=== PATIENT | male | born 1930 | race Caucasian/White ===

== ENCOUNTER 2016-06-28 12:30 | Outpatient (RCR) | payer MEDICARE ==
[~2016-06-28 12:30] MED LIST: ASPIRIN E.C. 8181 MG; MULTIPLE VITAMI1 CAP PO; ZYLOPRIM 300MG300 MG PO
== END 2016-06-29 09:44 | disposition home or self-care (01) ==
LOC: MKS.ESL.PT 12:30
DX: M62.81 Muscle weakness (generalized) (principal)
CPT/HCPCS: G8978-GP; G8979-GP; G8980-GP

== ENCOUNTER 2016-10-18 13:50 | Outpatient (RCR) | payer MEDICARE | END 2016-12-23 08:48 | disposition home or self-care (01) | LOC: MKS.ESL.PT 13:50 | DX: M62.81 Muscle weakness (generalized) (principal); R53.83 Other fatigue | CPT/HCPCS: G8978-GP; G8979-GP; G8980-GP ==

== ENCOUNTER → 2017-07-12 | Outpatient (CLI) | payer MEDICARE | LOC: COL.RAD 10:30 | DX: S22.080A Wedge compression fracture of T11-T12 vertebra, initial encounter for closed fracture (principal); M51.27 Other intervertebral disc displacement, lumbosacral region; G31.89 Other specified degenerative diseases of nervous system; W19.XXXA Unspecified fall, initial encounter ==

== ENCOUNTER 2017-07-14 09:50 | Outpatient (CLI) | payer MEDICARE ==
[~2017-07-14 09:50] MED LIST changes: -ASPIRIN E.C. 8181 MG; +ASPIRIN E.C. 8181 MG PO
[2017-07-14 10:38] VITALS: BP 136/80; PULSE 71; TEMP 98.1
[2017-07-14] MEDS ORDERED: PRINZIDE 12.5 M1 TA1 PO (10:42)
[2017-07-14] MEDS ORDERED: PLAVIX 75MG TAB75 MG PO (10:42)
[2017-07-14] MEDS ORDERED: FOLIC ACID 11 MG/TA1 PO (10:43)
[2017-07-14] MEDS ORDERED: ULTRAM 50MG TAB50 MG PO (10:44)
[2017-07-14] MEDS ORDERED: LIPITOR 10MG10 MG PO (10:45)
[2017-07-14] MEDS ORDERED: SENOKOT S 50 MG1 TAB PO (10:46)
== END 2017-07-14 11:00 | disposition home or self-care (01) ==
LOC: COL.CAR 09:50
DX: S22.088A Other fracture of T11-T12 vertebra, initial encounter for closed fracture (principal); S22.000G Wedge compression fracture of unspecified thoracic vertebra, subsequent encounter for fracture with delayed healing; Z53.9 Procedure and treatment not carried out, unspecified reason

== ENCOUNTER 2017-07-20 09:23 | Outpatient (CLI) | payer MEDICARE ==
[~2017-07-20] VITALS: Ht 175.4 cm; Wt 79.3 kg
[2017-07-20] VITALS (9 sets, daily range): BP systolic 124–188; BP diastolic 69–99; PULSE 60–78; TEMP 97.7
[~2017-07-20 09:23] MED LIST changes: +FOLIC ACID 11 MG/TA1 PO; +LIPITOR 10MG10 MG PO; +PLAVIX 75MG TAB75 MG PO; +PRINZIDE 12.5 M1 TA1 PO; +SENOKOT S 50 MG1 TAB PO; +ULTRAM 50MG TAB50 MG PO
[2017-07-20] MEDS ORDERED: FLOMAX 0.40.4 MG/CAP PO (10:03)
== END 2017-07-20 15:15 | disposition home or self-care (01) ==
LOC: COL.CAR 09:23
DX: M48.54XA Collapsed vertebra, not elsewhere classified, thoracic region, initial encounter for fracture (principal); E78.5 Hyperlipidemia, unspecified; I10 Essential (primary) hypertension; E79.0 Hyperuricemia without signs of inflammatory arthritis and tophaceous disease; Z86.73 Personal history of transient ischemic attack (TIA), and cerebral infarction without residual deficits; G89.29 Other chronic pain; E78.00 Pure hypercholesterolemia, unspecified
CPT/HCPCS: J0360; J2250; J3010; J7120

== ENCOUNTER 2017-10-24 11:00 | Outpatient (RCR) | payer MEDICARE ==
[~2017-10-24 11:00] MED LIST changes: +FLOMAX 0.40.4 MG/CAP PO
== END 2017-11-06 | disposition home or self-care (01) ==
LOC: MKS.ESL.PT
DX: M54.5 Low back pain (principal)
CPT/HCPCS: G8978-GP; G8979-GP

== ENCOUNTER → 2018-06-08 | Outpatient (CLI) | payer MEDICARE ==
[~2018-06-08] MED LIST changes: +B COMPLEX #11 TA1 PO; +D3-5050000 IU; +MIRALAX PA17 GM/Dose PO; +NORVASC 5MG5 MG/TAB PO; +SEROQUEL 2525 MG/TAB PO
[2018-06-08 15:43] LABS: CALCIUM 8.3 mg/dL (8.4-10.2); CREATININE, serum 0.83 mg/dL (0.66-1.25); POTASSIUM 4.4 mmol/L (3.4-5.0)
== END ==
LOC: ZCOL.LAB 15:24
PROVIDERS: Nurse Practitioner Family
DX: I10 Essential (primary) hypertension (principal)

== ENCOUNTER → 2018-06-13 | Outpatient (CLI) | payer MEDICARE ==
[2018-06-13 13:25] LABS: CALCIUM 8.9 mg/dL (8.4-10.2); CREATININE, serum 0.79 mg/dL (0.66-1.25); POTASSIUM 4.3 mmol/L (3.4-5.0)
== END ==
LOC: ZCOL.LAB 11:58
PROVIDERS: Internal Medicine
DX: I10 Essential (primary) hypertension (principal)

== ENCOUNTER → 2018-06-19 | Outpatient (CLI) | payer MEDICARE ==
[2018-06-19 17:40] LABS: CALCIUM 8.4 mg/dL (8.4-10.2); CREATININE, serum 0.84 mg/dL (0.66-1.25); POTASSIUM 4.3 mmol/L (3.4-5.0)
== END ==
LOC: ZCOL.LAB 17:20
PROVIDERS: Nurse Practitioner Family
DX: I10 Essential (primary) hypertension (principal)

== ENCOUNTER → 2018-06-26 | Outpatient (CLI) | payer MEDICARE | LOC: ZCOL.LAB 11:49 | DX: R41.82 Altered mental status, unspecified (principal) ==

== ENCOUNTER → 2018-07-03 | Outpatient (CLI) | payer MEDICARE ==
[2018-07-03 15:15] LABS: CALCIUM 8.7 mg/dL (8.4-10.2); CREATININE, serum 1.04 mg/dL (0.66-1.25); POTASSIUM 4.4 mmol/L (3.4-5.0)
== END ==
LOC: ZCOL.LAB 14:28
PROVIDERS: Internal Medicine
DX: I10 Essential (primary) hypertension (principal)

== ENCOUNTER → 2018-07-17 | Outpatient (CLI) | payer MEDICARE ==
[2018-07-17 12:47] LABS: CALCIUM 8.9 mg/dL (8.4-10.2); CREATININE, serum 0.82 mg/dL (0.66-1.25); POTASSIUM 4.2 mmol/L (3.4-5.0)
== END ==
LOC: ZCOL.LAB 12:35
PROVIDERS: Internal Medicine
DX: I10 Essential (primary) hypertension (principal)

== ENCOUNTER → 2018-07-21 | Outpatient (CLI) | payer MEDICARE ==
[2018-07-21 11:59] LABS: CALCIUM 8.5 mg/dL (8.4-10.2); CREATININE, serum 0.93 (0.66-1.25); POTASSIUM 4.1 mmol/L (3.4-5.0)
== END ==
LOC: ZCOL.LAB 10:34
PROVIDERS: Internal Medicine
DX: I10 Essential (primary) hypertension (principal)

== ENCOUNTER → 2018-07-27 | Outpatient (REF) ==
[2018-07-27 12:26] LABS: CALCIUM 8.7 mg/dL (8.4-10.2); CREATININE, serum 0.99 (0.66-1.25); POTASSIUM 3.7 mmol/L (3.4-5.0)
== END ==
LOC: ZCOL.LAB 12:14
PROVIDERS: Internal Medicine
DX: E87.5 Hyperkalemia (principal)

== ENCOUNTER → 2018-09-13 | Outpatient (CLI) | payer MEDICARE ==
[2018-09-13 12:08] LABS: CALCIUM 8.7 mg/dL (8.4-10.2); CREATININE, serum 0.88 (0.66-1.25); POTASSIUM 3.7 mmol/L (3.4-5.0)
== END ==
LOC: ZCOL.LAB 11:06
PROVIDERS: Internal Medicine
DX: R41.0 Disorientation, unspecified (principal)

== ENCOUNTER → 2018-10-20 | Outpatient (CLI) | payer MEDICARE | LOC: COL.RAD 09:12 | DX: T18.120A Food in esophagus causing compression of trachea, initial encounter (principal); R13.10 Dysphagia, unspecified ==